=== PATIENT | female | born 2000 | race Caucasian/White ===

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

== ENCOUNTER 2020-02-15 10:17 | Emergency (ER) | payer MEDICAID ==
[~2020-02-15] VITALS: Ht 157.5 cm; Wt 47.0 kg
[~2020-02-15 10:17] MED LIST changes: +MONT10TA21 PO
[2020-02-15 10:58] LABS: BASOPHILS % (AUTO) 0.3 % (0-1); EOSINOPHILS # (AUTO) 0.1 X10'3 (0-0.9); EOSINOPHILS % (AUTO) 1.5 % (0-6); HEMATOCRIT 39.2 % (35.0-45.0); HEMOGLOBIN 12.9 g/dl (12.0-16.0); LYMPHOCYTES # (AUTO) 1.8 X10'3 (1.1-4.8); LYMPHOCYTES % (AUTO) 21.5 % (21-51); MEAN CORPUSCULAR HEMOGLOBIN 29.1 PG (27.0-31.0); MEAN CORPUSCULAR VOLUME 88.3 FL (78-98); MEAN PLATELET VOLUME 8.1 FL (7.4-10.4); MONOCYTES # (AUTO) 0.5 X10'3 (0-0.9); MONOCYTES % (AUTO) 5.7 % (2-12); NEUTROPHILS # (AUTO) 5.8 X10'3 (1.8-7.7); PLATELET COUNT 213 X10'3 (140-440); RED BLOOD COUNT 4.44 X10'6 (4.20-5.60); RED CELL DISTRIBUTION WIDTH 13.1 % (11.5-14.5); WHITE BLOOD COUNT 8.2 X10'3 (4.5-11.0)
[2020-02-15] MEDS ORDERED: ondansetron/PF 4mg/2ml inj IV ONE (11:00)
[2020-02-15] MEDS ORDERED: normal saline 1000ML IV soln IVB ONE (11:00)
[2020-02-15 11:11] LABS: CLARITY,URINE TURBID (Clear); COLOR,URINE STRAW (Yellow); GLUCOSE, URINE NEGATIVE (Neg); KETONES,URINE NEGATIVE (Neg); LEUKOCYTE ESTERASE ,URINE NEGATIVE (Neg); NITRITES, URINE NEGATIVE (Neg); OCCULT BLOOD,URINE NEGATIVE (Neg); PH,URINE >=9.0 (4.8-8.0); PROTEIN,URINE TRACE mg/dl (Neg)
[2020-02-15 11:12] LABS: UA COLLECTION TYPE CLN CATCH MIDSTREAM; URINE HCG NEGATIVE (NEG)
[2020-02-15 11:15] LABS: ALANINE AMINOTRANSFERASE 17 U/L (12-78); ALBUMIN 3.9 G/DL (3.4-5.0); ALKALINE PHOSPHATASE 76 IU/L (20-180); ANION GAP 10 (8-16); ASPARTATE AMINO TRANSFERASE 15 U/L (10-37); BILIRUBIN,TOTAL 0.9 MG/DL (0.1-1.0); BLOOD UREA NITROGEN 11 MG/DL (7-18); BUN/CREATININE RATIO 12.2 (6.6-38.0); CHLORIDE 107 MMOL/L (99-107); CREATINE KINASE 81 U/L (26-192); GLUCOSE 100 MG/DL (70-104); LIPASE 97 U/L (73-393); POTASSIUM 3.7 MMOL/L (3.5-5.1); SODIUM 143 MMOL/L (135-145); TOTAL CARBON DIOXIDE 26.4 MMOL/L (24-32); TOTAL PROTEIN 7.8 G/DL (6.4-8.2); eGFR 81 ML/MIN
[2020-02-15 11:17] LABS: SQUAMOUS EPITHELIAL CELL,UR MANY /LPF (FEW)
[2020-02-15 11:19] LABS: RBC,URINE 0-2 /HPF (0-2); WBC,URINE 0-4 /HPF (0-4)
[2020-02-15 11:20] LABS: AMORPHOUS PHOSPHATES 4+; BACTERIA,URINE 4+ /HPF (Neg); MUCUS STRANDS MODERATE /LPF (Neg)
[2020-02-15] MEDS ORDERED: ONDA4TAB12 PO (11:33)
[2020-02-15 12:00] VITALS: BP 118/70
== END 2020-02-15 11:58 | disposition home or self-care (01) ==
LOC: ER 10:18
DX: E86.0 Dehydration (principal); R11.2 Nausea with vomiting, unspecified; R51 Headache; J02.9 Acute pharyngitis, unspecified; J45.909 Unspecified asthma, uncomplicated; F41.9 Anxiety disorder, unspecified; Z91.011 Allergy to milk products; Z79.899 Other long term (current) drug therapy
CPT/HCPCS: 36415; 80053; 81001; 81025; 82550; 83690; 85025; 96361; 96374; 99283; J2405; J7030

== ENCOUNTER 2021-05-06 15:28 | Emergency (ER) | payer MEDICAID ==
[~2021-05-06] VITALS: Ht 157.5 cm; Wt 52.3 kg
[~2021-05-06 15:28] MED LIST changes: +ONDA4TAB12 PO
[2021-05-06 15:34] VITALS: BP 106/61
--- NOTE | 2021-05-06 16:36 | NUR ---
DR. PRETTY AT BEDSIDE.
[2021-05-06] MEDS ORDERED: cephalexin 250mg capsule PO ONE (16:40)
[2021-05-06] MEDS ORDERED: LIDOcaine 1% W/epiNEPHrine 1:200,000 10ml vial IJ ONE (17:25)
[2021-05-06] MEDS ORDERED: CEPH-585 PO (17:54)
== END 2021-05-06 18:14 | disposition home or self-care (01) ==
LOC: ER 15:29
DX: L02.01 Cutaneous abscess of face (principal); J45.909 Unspecified asthma, uncomplicated; F41.9 Anxiety disorder, unspecified; Z91.011 Allergy to milk products; Z88.1 Allergy status to other antibiotic agents
CPT/HCPCS: 10060; 99283

== ENCOUNTER 2021-07-10 02:38 | Emergency (ER) | payer MEDICAID ==
[~2021-07-10] VITALS: Ht 157.5 cm; Wt 52.7 kg
[~2021-07-10 02:38] MED LIST changes: +CEPH-585 PO
[2021-07-10 02:43] VITALS: BP 129/90
[2021-07-10] MEDS ORDERED: CLIN300C54 PO (04:00)
[2021-07-10] MEDS ORDERED: ketorolac trometh inj. 60 MG/2 ML VIAL IM ONE (04:05)
[2021-07-10] MEDS ORDERED: clindamycin 150mg capsule PO ONE ×2 (04:05→04:20)
== END 2021-07-10 04:26 | disposition home or self-care (01) ==
LOC: ER 02:39
DX: L03.211 Cellulitis of face (principal); J45.909 Unspecified asthma, uncomplicated; F41.9 Anxiety disorder, unspecified; Z91.011 Allergy to milk products; Z88.1 Allergy status to other antibiotic agents; Z79.899 Other long term (current) drug therapy
CPT/HCPCS: 96372; 99284; J1885

== ENCOUNTER 2021-10-03 19:14 | Emergency (ER) | payer MEDICAID ==
[~2021-10-03] VITALS: Ht 165.1 cm; Wt 50.0 kg
[2021-10-03 19:32] VITALS: BP 114/82
[2021-10-03] MEDS ORDERED: ipratropium/albuterol 3ml nebule NEB ONE (19:50)
== END 2021-10-03 21:20 | disposition home or self-care (01) ==
LOC: ER 19:14
DX: J45.909 Unspecified asthma, uncomplicated (principal); R42 Dizziness and giddiness; F41.9 Anxiety disorder, unspecified; Z91.011 Allergy to milk products; Z88.1 Allergy status to other antibiotic agents; Z79.2 Long term (current) use of antibiotics; Z79.899 Other long term (current) drug therapy
CPT/HCPCS: 93005; 94640; 94760; 99283

== ENCOUNTER 2021-11-18 20:49 | Emergency (ER) | payer MEDICAID ==
[~2021-11-18] VITALS: Ht 157.5 cm; Wt 50.0 kg
[~2021-11-18 20:49] MED LIST changes: +OMEP20TA43 PO; -OMEP20TA5 PO
[2021-11-18 20:52] VITALS: BP 109/71
[2021-11-18] MEDS ORDERED: CefTRIAXone 1000mg IM Kit (w/lidocaine diluent) IM ONE (21:15)
[2021-11-18] MEDS ORDERED: HYDROcodone/acetaminophen 5mg/325mg tablet PO ONE (21:20)
== END 2021-11-18 22:01 | disposition home or self-care (01) ==
LOC: ER 20:49
DX: H05.211 Displacement (lateral) of globe, right eye (principal); B99.9 Unspecified infectious disease; F41.9 Anxiety disorder, unspecified; J45.909 Unspecified asthma, uncomplicated; Z91.011 Allergy to milk products; Z88.1 Allergy status to other antibiotic agents; Z88.8 Allergy status to other drugs, medicaments and biological substances; Z79.2 Long term (current) use of antibiotics; Z79.899 Other long term (current) drug therapy
CPT/HCPCS: 96372; 99283; J0696

== ENCOUNTER 2022-01-10 14:33 | Emergency (ER) | payer MEDICAID ==
[~2022-01-10] VITALS: Ht 157.5 cm; Wt 50.0 kg
[2022-01-10 15:19] LABS: BASOPHILS % (AUTO) 0.1 % (0-1); EOSINOPHILS % (AUTO) 0.1 % (0-6); HEMATOCRIT 47.2 % (35.0-45.0); HEMOGLOBIN 15.3 g/dl (12.0-16.0); LYMPHOCYTES # (AUTO) 1.7 X10'3 (1.1-4.8); MEAN CORPUSCULAR HEMOGLOBIN 27.2 PG (27.0-31.0); MEAN CORPUSCULAR HGB CONC 32.3 g/dL (33.0-36.5); MEAN PLATELET VOLUME 7.9 FL (7.4-10.4); MONOCYTES # (AUTO) 0.6 X10'3 (0-0.9); MONOCYTES % (AUTO) 5.8 % (2-12); NEUTROPHILS # (AUTO) 7.7 X10'3 (1.8-7.7); PLATELET COUNT 254 X10'3 (140-440); RED BLOOD COUNT 5.62 X10'6 (4.20-5.60); RED CELL DISTRIBUTION WIDTH 14.1 % (11.5-14.5)
[2022-01-10 15:22] LABS: D-DIMER 1.84 MG/L FEU (0-0.50)
[2022-01-10 15:25] LABS: ALANINE AMINOTRANSFERASE 13 U/L (12-78); ALBUMIN 4.8 G/DL (3.4-5.0); ALKALINE PHOSPHATASE 77 IU/L (46-116); ANION GAP 12 (8-16); ASPARTATE AMINO TRANSFERASE 17 U/L (10-37); BILIRUBIN,TOTAL 1.5 MG/DL (0.1-1.0); BLOOD UREA NITROGEN 9 MG/DL (7-18); BUN/CREATININE RATIO 10.6 (6.6-38.0); CALCIUM 9.7 MG/DL (8.5-10.1); CHLORIDE 102 MMOL/L (99-107); CREATININE 0.85 MG/DL (0.40-0.90); GLUCOSE 98 MG/DL (70-104); POTASSIUM 3.2 MMOL/L (3.5-5.1); SODIUM 139 MMOL/L (135-145); TOTAL CARBON DIOXIDE 25.1 MMOL/L (24-32); TOTAL PROTEIN 9.4 G/DL (6.4-8.2); eGFR 84 ML/MIN
[2022-01-10 15:35] LABS: MAGNESIUM 2.3 MG/DL (1.5-2.4)
[2022-01-10 17:44] LABS: URINE HCG NEGATIVE (NEG)
[2022-01-10 17:45] LABS: CLARITY,URINE SLIGHTLY CLOUDY (Clear); COLOR,URINE YELLOW (Yellow); GLUCOSE, URINE NEGATIVE (Neg); KETONES,URINE NEGATIVE (Neg); LEUKOCYTE ESTERASE ,URINE NEGATIVE (Neg); NITRITES, URINE NEGATIVE (Neg); OCCULT BLOOD,URINE NEGATIVE (Neg); PROTEIN,URINE NEGATIVE (Neg); UROBILINOGEN,URINE 0.2 E.U/dL (0.2-1.0)
[2022-01-10 17:47] LABS: UA COLLECTION TYPE CLN CATCH MIDSTREAM
[2022-01-10 17:54] LABS: BACTERIA,URINE NONE SEEN /HPF (Neg); HYALINE CASTS 0-3 /LPF (NEGATIVE); MUCUS STRANDS MODERATE /LPF (Neg)
[2022-01-10 17:55] LABS: RBC,URINE NONE SEEN /HPF (0-2); WBC,URINE 0-4 /HPF (0-4)
[2022-01-10 17:57] LABS: SQUAMOUS EPITHELIAL CELL,UR MANY /LPF (FEW)
[2022-01-10 17:59] LABS: URINE AMPHETAMINE SCREEN POSITIVE (Neg); URINE BARBITUATE SCREEN NEGATIVE (Neg); URINE BENZODIAZEPINES SCREEN NEGATIVE (Neg); URINE CANNABINOID SCREEN NEGATIVE (Neg); URINE COCAINE SCREEN NEGATIVE (Neg); URINE METHADONE SCREEN NEGATIVE (Neg); URINE OPIATE SCREEN NEGATIVE (Neg); URINE PHENCYCLIDINE SCREEN NEGATIVE (Neg)
[2022-01-10] MEDS ORDERED: morphine 4 MG/ML inj SYRINge IV ONE (18:20)
[2022-01-10 18:43] VITALS: BP 107/63
== END 2022-01-10 18:48 | disposition home or self-care (01) ==
LOC: ER 14:33
DX: R00.0 Tachycardia, unspecified (principal); R07.89 Other chest pain; R06.02 Shortness of breath; R42 Dizziness and giddiness; J45.909 Unspecified asthma, uncomplicated; F41.9 Anxiety disorder, unspecified; Z88.1 Allergy status to other antibiotic agents; Z91.011 Allergy to milk products; Z79.899 Other long term (current) drug therapy
CPT/HCPCS: 36415; 71045; 71275; 80053; 80305; 81001; 81025; 83735; 84443; 84484; 85025; 85379; 93005; 96374; 99285; J2270

== ENCOUNTER 2023-02-06 15:27 | Emergency (ER) | payer MEDICAID, OTHER ==
[~2023-02-06] VITALS: Ht 157.5 cm; Wt 60.0 kg
[~2023-02-06 15:27] MED LIST changes: -CEPH-585 PO; +MONT-47 PO; -MONT10TA21 PO
[2023-02-06 15:57] VITALS: BP 122/79
[2023-02-06] MEDS ORDERED: ONDA4TAB12 PO (19:28)
[2023-02-06] MEDS ORDERED: ondansetron 4mg rapidly disintigrating tab PO ONE (19:30)
== END 2023-02-06 19:41 | disposition home or self-care (01) ==
LOC: ER 15:28
DX: S06.0X0A Concussion without loss of consciousness, initial encounter (principal); F41.9 Anxiety disorder, unspecified; J45.909 Unspecified asthma, uncomplicated; Z91.011 Allergy to milk products; Z88.1 Allergy status to other antibiotic agents; Z79.899 Other long term (current) drug therapy; W22.8XXA Striking against or struck by other objects, initial encounter; Y93.89 Activity, other specified; Y92.89 Other specified places as the place of occurrence of the external cause; Y99.8 Other external cause status
CPT/HCPCS: 70450; 99284

== ENCOUNTER 2024-02-11 07:21 | Outpatient (CLI) | payer MEDICAID ==
[2024-02-11] VITALS (9 sets, daily range): BP systolic 54–132; BP diastolic 38–76; PULSE 69–120
[~2024-02-11 07:21] MED LIST changes: +ONDA-243 PO; -ONDA4TAB12 PO
== END 2024-02-11 23:59 | disposition home or self-care (01) ==
LOC: CARD DIAG 07:21
PROVIDERS: ATTEND Internal Medicine Cardiovascular Disease
DX: R00.0 Tachycardia, unspecified (principal); R42 Dizziness and giddiness
CPT/HCPCS: 93660

== ENCOUNTER 2024-02-19 16:51 | Emergency (ER) | payer MEDICAID ==
[~2024-02-19] VITALS: Ht 157.5 cm; Wt 54.1 kg
[2024-02-19 17:45] LABS: BASOPHILS % (AUTO) 0.6 % (0-1); EOSINOPHILS % (AUTO) 0.5 % (0-6); HEMATOCRIT 40.6 % (35.0-45.0); HEMOGLOBIN 13.1 g/dl (12.0-16.0); LYMPHOCYTES % (AUTO) 26.5 % (21-51); MEAN CORPUSCULAR HEMOGLOBIN 27.4 PG (27.0-31.0); MEAN CORPUSCULAR HGB CONC 32.4 g/dL (33.0-36.5); MEAN CORPUSCULAR VOLUME 84.7 FL (78-98); MEAN PLATELET VOLUME 7.5 FL (7.4-10.4); MONOCYTES # (AUTO) 0.5 X10'3 (0-0.9); MONOCYTES % (AUTO) 7.1 % (2-12); NEUTROPHILS % (AUTO) 65.3 % (42-75); PLATELET COUNT 295 X10'3 (140-440); RED BLOOD COUNT 4.79 X10'6 (4.20-5.60); RED CELL DISTRIBUTION WIDTH 14.3 % (11.5-14.5); WHITE BLOOD COUNT 7.7 X10'3 (4.5-11.0)
[2024-02-19 17:56] LABS: BILIRUBIN,URINE NEGATIVE (Neg); CLARITY,URINE CLEAR (Clear); COLOR,URINE YELLOW (Yellow); GLUCOSE, URINE NEGATIVE (Neg); KETONES,URINE NEGATIVE (Neg); LEUKOCYTE ESTERASE ,URINE NEGATIVE (Neg); NITRITES, URINE NEGATIVE (Neg); OCCULT BLOOD,URINE TRACE-INTACT (Neg); PROTEIN,URINE NEGATIVE (Neg); UROBILINOGEN,URINE 0.2 E.U/dL (0.2-1.0)
[2024-02-19 17:57] LABS: UA COLLECTION TYPE CLN CATCH MIDSTREAM
[2024-02-19 17:58] LABS: ALANINE AMINOTRANSFERASE 23 U/L (12-78); ALBUMIN 4.2 G/DL (3.4-5.0); ALBUMIN/GLOBULIN RATIO 0.8 (1.1-1.5); ALKALINE PHOSPHATASE 78 IU/L (46-116); ANION GAP 8 (8-16); ASPARTATE AMINO TRANSFERASE 18 U/L (10-37); BILIRUBIN,TOTAL 0.8 MG/DL (0.1-1.0); BLOOD UREA NITROGEN 8 MG/DL (7-18); BUN/CREATININE RATIO 9.6 (10.0-20.0); CALCIUM 9.4 MG/DL (8.5-10.1); CHLORIDE 103 MMOL/L (99-107); CREATININE 0.83 MG/DL (0.40-0.90); GLUCOSE 110 MG/DL (70-104); LIPASE 27 U/L (16-77); POTASSIUM 3.1 MMOL/L (3.5-5.1); SODIUM 140 MMOL/L (135-145); TOTAL CARBON DIOXIDE 29.4 MMOL/L (24-32); TOTAL PROTEIN 9.2 G/DL (6.4-8.2); eCRCL 83 ML/MIN; eGFR 85 ML/MIN
[2024-02-19 18:01] LABS: SQUAMOUS EPITHELIAL CELL,UR MODERATE /LPF (FEW); WBC,URINE 0-4 /HPF (0-4)
[2024-02-19 18:02] LABS: BACTERIA,URINE FEW /HPF (Neg); MUCUS STRANDS FEW /LPF (Neg)
[2024-02-19 18:03] LABS: URINE HCG NEGATIVE (NEG)
[2024-02-19] MEDS ORDERED: ONDA-245 PO (21:23)
[2024-02-19] MEDS ORDERED: LOPE2CAP PO (21:23)
[2024-02-19] MEDS ORDERED: POTA-206 PO (21:23)
[2024-02-19] MEDS: acetaminophen 325mg tablet PO ONE (21:42)
[2024-02-19] MEDS: loperamide 2mg capsule PO ONE (21:42)
[2024-02-19] MEDS: ondansetron 4mg rapidly disintigrating tab PO ONE (21:42)
[2024-02-19 21:50] VITALS: BP 119/86; PULSE 92; RESP 17; TEMP 98.3; O2SAT 100
== END 2024-02-19 22:04 | disposition home or self-care (01) ==
LOC: ER 16:51
DX: K52.9 Noninfective gastroenteritis and colitis, unspecified (principal); E87.6 Hypokalemia; J45.909 Unspecified asthma, uncomplicated; Z91.011 Allergy to milk products; Z88.1 Allergy status to other antibiotic agents; Z79.899 Other long term (current) drug therapy
CPT/HCPCS: 36415; 80053; 81001; 81025; 83690; 85025; 99284

== ENCOUNTER 2024-10-14 11:53 | Emergency (ER) | payer MEDICAID ==
[~2024-10-14] VITALS: Ht 157.5 cm; Wt 59.1 kg
[~2024-10-14 11:53] MED LIST changes: +LOPE2CAP PO; +ONDA-245 PO; +POTA-206 PO
[2024-10-14] MEDS ORDERED: IBUP-1985 PO (13:16)
[2024-10-14] MEDS ORDERED: ACET-1025 PO (13:16)
[2024-10-14 14:04] VITALS: BP 124/62; PULSE 78; RESP 16; TEMP 98.7; O2SAT 98
== END 2024-10-14 14:05 | disposition home or self-care (01) ==
LOC: ER 11:54
DX: M25.531 Pain in right wrist (principal); J45.909 Unspecified asthma, uncomplicated; F41.9 Anxiety disorder, unspecified; Z91.011 Allergy to milk products; Z88.1 Allergy status to other antibiotic agents
CPT/HCPCS: 29125; 73110; 99284

== ENCOUNTER 2025-06-06 18:39 | Emergency (ER) | payer MEDICAID ==
[~2025-06-06] VITALS: Ht 157.5 cm; Wt 65.0 kg
[~2025-06-06 18:39] MED LIST changes: +IBUP600T52 PO
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
--- NOTE | 2025-06-06 22:11 | ELECTROCARDIOGRAPH REPORT ---
[facility] Test Date: 2025-06-06 Test Time: 22:06:52 Pat Name: VAN CERVANTES [facility]- [id number] Room: Gender: F Lens Gauger: : 2000 Requested By: JAILYN DUFFY Order Number: [id number] Reading MD: Dr. Carlos Robles Measurements Intervals [place] Rate: 95 P: 81 SD: 144 QRS: 62 QRSD: 91 T: 41 QT: 363 QTc: 457 Interpretive Statements Sinus rhythm RSR' in V1 or V2, right VCD or RVH Borderline T abnormalities, anterior leads Electronically Signed On 06-07-2025 6:15:[address] Carlos Robles Please click the below link to view image of tracing.
[2025-06-06] MEDS: normal saline 1000ml 1,000 ML IV ONE (22:16)
[2025-06-06 22:31] LABS: MEAN PLATELET VOLUME 8.0 FL (7.4-10.4); RED CELL DISTRIBUTION WIDTH 14.5 % (11.5-14.5)
[2025-06-06 22:32] LABS: CREATININE 0.67 MG/DL (0.40-0.90); TOTAL CARBON DIOXIDE 25.5 MMOL/L (24-32); eCRCL 102 ML/MIN; eGFR > 90 ML/MIN
[2025-06-06 22:41] LABS: HCG SERUM QL NEGATIVE
[2025-06-06 22:50] LABS: ETHANOL < 10 MG/DL (<10)
[2025-06-07 00:16] VITALS: BP 118/77; PULSE 91; RESP 16; TEMP 96.3; O2SAT 99
== END 2025-06-07 00:19 | disposition home or self-care (01) ==
LOC: ER 18:40
DX: R49.0 Dysphonia (principal); G89.11 Acute pain due to trauma; R09.01 Asphyxia; R42 Dizziness and giddiness; R07.9 Chest pain, unspecified; Z88.1 Allergy status to other antibiotic agents; Z91.0110 Allergy to milk products, unspecified; Z79.899 Other long term (current) drug therapy; Y04.0XXA Assault by unarmed brawl or fight, initial encounter; Y93.89 Activity, other specified; Y92.89 Other specified places as the place of occurrence of the external cause; Y99.8 Other external cause status
CPT/HCPCS: 36415; 70498; 80053; 80320; 83735; 84439; 84443; 84484; 84703; 85025; 93005; 96360; 99285; J7030; Q9967